=== PATIENT | female | born 1935 | race Two or more races ===

== ENCOUNTER 2018-09-04 18:26 | Emergency (ER) | payer MEDICARE, BC ==
[~2018-09-04] VITALS: Ht 165.1 cm; Wt 58.1 kg
--- NOTE | 2018-09-04 18:40 | NUR ---
C/O WEAKNESS, NOTED TODAY; SHE IS CONCERN ABOUT HEART ATTACK DENIES FEVER OR CHILLS, NO RECENT TRAVEL. PATIENT A/OX4, DENIES PAIN OR DISCOMFORT AT THIS TIME. NO SOB NOTED, CHANGED INTO GOWN, ATTACHED TO THE MONITOR. SON AT BEDSIDE.
[2018-09-04 19:01] LABS: BASOPHILS % (AUTO) 0.9 % (0.0-2.0); EOSINOPHILS % (AUTO) 3.5 % (0.0-6.0); HEMATOCRIT 40 % (33-45); HEMOGLOBIN 13.7 g/dL (11.5-14.8); LYMPHOCYTES # (AUTO) 1.3 /CMM (0.8-4.8); LYMPHOCYTES % (AUTO) 31.9 % (20.0-44.0); MEAN CORPUSCULAR HGB CONC 34 g/dl (31.0-36.0); MEAN CORPUSCULAR VOLUME 88 fL (82-100); MONOCYTES # (AUTO) 0.3 /CMM (0.1-1.30); MONOCYTES % (AUTO) 7.8 % (2.0-12.0); NEUTROPHILS # (AUTO) 2.2 /CMM (1.8-8.9); NEUTROPHILS % (AUTO) 55.9 % (43.0-81.0); PLATELET COUNT (AUTO) 209 /CMM (150-450); RED BLOOD CELL COUNT(AUTO) 4.57 MIL/uL (4.0-5.2)
[2018-09-04 19:08] LABS: CALCIUM, SERUM 8.6 mg/dL (8.5-10.1); CARBON DIOXIDE 28 mmol/L (21-32); CHLORIDE 103 mmol/L (98-107); GLUCOSE 97 mg/dL (74-106); POTASSIUM 3.8 mmol/L (3.5-5.1); SODIUM SERUM 138 mmol/L (136-145); UREA NITROGEN, BLOOD 25 mg/dL (7-18)
[2018-09-04 19:15] VITALS: BP 152/69
--- NOTE | 2018-09-04 19:15 | NUR ---
PT RECEIVED FROM DREA LIZARRAGA FOR JEREMIAS. PT IN BED. AAOX4. NAD NOTED.
--- NOTE | 2018-09-04 19:52 | NUR ---
Patient discharged to home in stable condition. Written and verbal after care instructions given. Patient verbalizes understanding of instruction.IV removed. Catheter intact and site benign. Pressure and 4x4 applied to site. No bleeding noted. Pt ambulatory with a steady gait
== END 2018-09-04 20:23 | disposition home or self-care (01) ==
LOC: ER 18:36
DX: R53.1 Weakness (principal); I11.9 Hypertensive heart disease without heart failure; Z95.5 Presence of coronary angioplasty implant and graft
CPT/HCPCS: 36415; 71045-TC; 80048-TC; 84484-TC; 85025-TC

== ENCOUNTER 2020-09-02 14:00 | Emergency (ER) | payer MEDICARE, BC ==
[~2020-09-02] VITALS: Ht 165.1 cm; Wt 64.0 kg
--- NOTE | 2020-09-02 14:00 | NUR ---
PT BIB FAMILY C/O FACE, R WRIST AND R KNEE PAIN S/P GLF. -KO. PT IS AAOX4, NOT IN RESPIRATORY DISTRESS, V/S STABLE, KEPT RESTED AND COMFORTABLE. WILL CONTINUE TO MONITOR.
--- NOTE | 2020-09-02 14:35 | NUR ---
SEEN AND EXAMINED BY .
--- NOTE | 2020-09-02 14:45 | NUR ---
PT IS WHEELED TO CT SCAN VIA [facility].
--- NOTE | 2020-09-02 16:26 | NUR ---
KNEE IMMOBILIZER APPLIED TO R KNEE.
--- NOTE | 2020-09-02 16:30 | NUR ---
Patient discharged to home in stable condition. Written and verbal after care instructions given. Patient verbalizes understanding of instruction.
[2020-09-02 16:31] VITALS: BP 135/81
== END 2020-09-02 16:31 | disposition home or self-care (01) ==
LOC: ER 14:00
DX: S82.091A Other fracture of right patella, initial encounter for closed fracture (principal); I10 Essential (primary) hypertension; W18.39XA Other fall on same level, initial encounter; Y93.01 Activity, walking, marching and hiking; Y92.89 Other specified places as the place of occurrence of the external cause; Y99.8 Other external cause status
CPT/HCPCS: 70450-TC; 70486-TC; 72125-TC; 73110; 73564-TC

== ENCOUNTER 2020-09-25 10:37 | Outpatient (CLI) | payer MEDICARE, BC ==
[2020-09-25 13:23] LABS: BASOPHILS # (AUTO) 0.1 K/uL (0.0-0.2); BASOPHILS % (AUTO) 1.1 % (0.0-2.0); EOSINOPHILS % (AUTO) 2.9 % (0.0-6.0); HEMATOCRIT 40 % (33-45); HEMOGLOBIN 13.4 g/dL (11.5-14.8); LYMPHOCYTES # (AUTO) 1.2 K/uL (0.8-4.8); MEAN CORPUSCULAR HGB CONC 34 g/dl (31.0-36.0); MEAN CORPUSCULAR VOLUME 88 fL (82-100); MONOCYTES # (AUTO) 0.3 K/uL (0.1-1.30); MONOCYTES % (AUTO) 5.7 % (2.0-12.0); NEUTROPHILS # (AUTO) 3.4 K/uL (1.8-8.9); NEUTROPHILS % (AUTO) 66.3 % (43.0-81.0); PLATELET COUNT (AUTO) 231 K/uL (150-450); RED BLOOD CELL COUNT(AUTO) 4.55 MIL/uL (4.0-5.2); WHITE BLOOD COUNT (AUTO) 5.1 K/uL (4.3-11.0)
[2020-09-25 13:37] LABS: URINE TOTAL PROTEIN 23.3 mg/dL (0-11.9)
[2020-09-25 13:39] LABS: BILIRUBIN,URINE NEGATIVE (NEGATIVE); COLOR,URINE YELLOW (YELLOW); LEUKOCYTE ESTERASE ,URINE MODERATE (NEGATIVE); NITRITE, URINE POSITIVE (NEGATIVE); PROTEIN,URINE TRACE mg/dl (NEGATIVE); UGLUCOSE NEGATIVE (NEGATIVE)
[2020-09-25 14:15] LABS: BACTERIA,URINE 4+ /HPF (None Seen)
[2020-09-25 14:16] LABS: SQUAMOUS EPITHELIAL CELL,UR None Seen /HPF (None Seen); WBC,URINE TOO NUMEROUS TO COUN /HPF (0-3)
[2020-09-25 14:27] LABS: CHOLESTEROL 111 mg/dL (<200); HDL CHOLESTEROL 56 mg/dL (40-60); LDL 49 mg/dL (0-99); TRIGLYCERIDES 84 mg/dL (30-150)
[2020-09-25 14:45] LABS: C-REACTIVE PROTEIN < 0.2 mg/dL (0.0-0.9)
[2020-09-25 14:53] LABS: ALANINE AMINOTRANSFERASE 12 U/L (12-78); ALBUMIN 3.3 g/dL (3.4-5.0); ALKALINE PHOSPHATASE 85 U/L (46-116); ASPARTATE AMINOTRANSFERASE 17 U/L (15-37); CALCIUM, SERUM 8.5 mg/dL (8.5-10.1); CARBON DIOXIDE 29 mmol/L (21-32); CHLORIDE 107 mmol/L (98-107); GLUCOSE 92 mg/dL (74-106); MAGNESIUM 2.4 mg/dL (1.8-2.4); PHOSPHORUS 3.8 mg/dL (2.5-4.9); POTASSIUM 4.3 mmol/L (3.5-5.1); SODIUM SERUM 142 mmol/L (136-145); TOTAL PROTEIN, SERUM 6.5 g/dL (6.4-8.2); UREA NITROGEN, BLOOD 22 mg/dL (7-18)
[2020-09-25 15:16] LABS: BILIRUBIN,TOTAL 0.6 mg/dL (0.2-1.0)
[2020-09-26 11:07] LABS: *SPE A/G RATIO 1.2 (0.7-1.7); *SPE ALPHA-1-GLOBULIN 0.3 g/dL (0.0-0.4); *SPE ALPHA-2-GLOBULIN 0.7 g/dL (0.4-1.0); *SPE M-SPIKE Not Observed g/dL (Not Observed)
== END 2020-09-25 23:59 | disposition home or self-care (01) ==
LOC: MSC 10:37
PROVIDERS: ATTEND Internal Medicine
DX: I11.0 Hypertensive heart disease with heart failure (principal); I50.9 Heart failure, unspecified; Z87.440 Personal history of urinary (tract) infections; I25.10 Atherosclerotic heart disease of native coronary artery without angina pectoris; Z95.5 Presence of coronary angioplasty implant and graft; R29.6 Repeated falls; F32.9 Major depressive disorder, single episode, unspecified; Z79.899 Other long term (current) drug therapy
CPT/HCPCS: 36415; 76770; 80053; 80061; 81001; 82043; 82306; 82570; 82607; 82746; 83036; 83735; 83970; 84100; 84155 ×2; 84156; 84165; 85025; 85652; 86038; 86140; 87077; 87086; 87186 ×2; G0463

== ENCOUNTER → 2020-10-01 | Outpatient (CLI) | payer MEDICARE, BC ==
[~2020-10-01] MED LIST: EPINEPHRINE (1:1000) 1 MG/ML AMPUL ONE; KETOROLAC TROMETHAMINE INJ 30 MG/ML VIAL ONE; LIDOCAINE 2% 50 ML MDV IJ ONE; MORPHINE SULFATE INJ 4 MG/ML DISP.SYRIN ONE; POLYMYXIN B SULFATE 0 UNITS ONE
== END | disposition home or self-care (01) ==
LOC: MSC 14:00
PROVIDERS: ATTEND Internal Medicine
DX: I13.0 Hypertensive heart and chronic kidney disease with heart failure and stage 1 through stage 4 chronic kidney disease, or unspecified chronic kidney disease (principal); N18.2 Chronic kidney disease, stage 2 (mild); I50.9 Heart failure, unspecified; Z87.440 Personal history of urinary (tract) infections; I25.10 Atherosclerotic heart disease of native coronary artery without angina pectoris; Z95.5 Presence of coronary angioplasty implant and graft; R29.6 Repeated falls; F32.9 Major depressive disorder, single episode, unspecified
CPT/HCPCS: J0171; J1885; J2270; J3490